=== PATIENT | male | born 1980 | race Caucasian/White ===

== ENCOUNTER 2017-10-10 05:47 | Emergency (ER) | payer MEDICARE, MEDICAID ==
[2017-10-10] MEDS ORDERED: Ibuprofen 800 MG TAB ONE (06:06)
[2017-10-10] MEDS ORDERED: Pseudoephedrine HCl 30 MG TAB PO SCH (06:30)
== END 2017-10-10 06:35 | disposition home or self-care (01) ==
LOC: ERS 05:47
DX: J40 Bronchitis, not specified as acute or chronic (principal); F17.210 Nicotine dependence, cigarettes, uncomplicated; Z71.6 Tobacco abuse counseling
CPT/HCPCS: 99406

== ENCOUNTER 2017-10-19 01:16 | Emergency (ER) | payer MEDICARE, MEDICAID ==
[2017-10-19 02:14] LABS: CKMB 1.7 ng/mL (0-6.6); Troponin I 0.011 ng/mL (< 0.028)
[2017-10-19 02:23] LABS: ALT (SGPT) 17 U/L (8-55); AST (SGOT) 18 U/L (5-34); Albumin 4.2 g/dL (3.5-5.0); Alkaline Phosphatase 82 U/L (40-150); Anion Gap 14 mmol/L (10-20); BUN (Urea Nitrogen) 12 mg/dL (8.9-20.6); Bilirubin, Total 0.3 mg/dL (0.2-1.2); CK (CPK) 194 U/L (30-200); Calc. Creatinine Clearance 0 mL/min (70-130); Calcium 9.7 mg/dL (7.8-10.44); Carbon Dioxide 26 mmol/L (22-29); Chloride 105 mmol/L (98-107); Estimated GFR-MDRD 67; Globulin 3.6 g/dL (2.4-3.5); Glucose 111 mg/dL (70-105); Lipase 223 U/L (8-78); Protein, Total 7.8 g/dL (6.0-8.3); Sodium 141 mmol/L (136-145)
[2017-10-19 02:24] LABS: #Basophils 0.1 thou/uL (0.0-0.2); #Eosinphils 0.2 thou/uL (0.0-0.7); #Lymphocytes 2.3 thou/uL (1.20-3.40); #Monocytes 0.7 thou/uL (0.11-0.59); #Neutrophils 4.2 thou/uL (1.40-6.50); %Basophils 1.6 % (0.0-1.0); %Eosinophils 2.5 % (0.0-10.0); %Lymphocytes 30.8 % (21.0-51.0); %Monocytes 9.9 % (0.0-10.0); %Neutrophils 55.1 % (42.0-75.0); Eosinophils 2 % (0-10); Hemoglobin 17.7 g/dL (14.0-18.0); Lymphocytes 43 % (21-51); MDiff Complete? YES; Mean Corpuscular HGB CONC 31.8 g/dL (32.0-36.0); Mean Corpuscular Hemoglobin 31.4 pg (27.0-31.0); Mean Corpuscular Volume 98.9 fl (80.0-94.0); Mean Platelet Volume 6.9 fL (7.4-10.4); Metamyelocyte 1 % (0-0); Monocytes 5 % (0-10); Neutrophil 49 % (42-75); PLT Morphology Comment Appears Adequate; Platelet Count 328 thou/uL (130-400); Red Blood Cell (RBC) Count 5.64 mill/uL (4.70-6.10); White Blood Cell (WBC) Count 7.5 thou/uL (4.8-10.8)
[2017-10-19] MEDS ORDERED: Ibuprofen 800 MG TAB ONE (03:55)
--- NOTE | 2017-10-19 09:27 | RAD ---
SINGLE VIEW OF THE CHEST: Comparison: 07-25-16 History: Epigastric abdominal pain and chest pain. FINDINGS: Single view of the chest shows a normal sized cardiomediastinal silhouette. Scarring is seen in the r ight lung base. There is no evidence of consolidation, mass, or pleural effusion. IMPRESSION: No evidence of acute cardiopulmonary disease. POS: [facility]
== END 2017-10-19 04:02 | disposition home or self-care (01) ==
LOC: ERS 01:16
DX: M54.5 Low back pain (principal); R07.9 Chest pain, unspecified; F17.210 Nicotine dependence, cigarettes, uncomplicated; G40.909 Epilepsy, unspecified, not intractable, without status epilepticus; Z71.6 Tobacco abuse counseling; Z79.899 Other long term (current) drug therapy
CPT/HCPCS: 71045; 80053; 82553; 83690; 84484; 85025; 93005

== ENCOUNTER 2018-01-21 15:02 | Emergency (ER) | payer MEDICARE, MEDICAID ==
[2018-01-21] MEDS ORDERED: Ketorolac Tromethamine 30 MG/ML VIAL ONE (16:10)
--- NOTE | 2018-01-21 16:33 | RAD ---
THREE VIEWS OF THE RIGHT FOOT: 01/21/18 COMPARISON: None. HISTORY: Right foot pain. FINDINGS: There is no displaced fracture or evidence of dislocation. There is no radiopaque foreign body or sub cutaneous gas seen. IMPRESSION: No acute osseous abnormality. POS: [facility]
== END 2018-01-21 16:30 | disposition home or self-care (01) ==
LOC: ERS 15:02
DX: S90.31XA Contusion of right foot, initial encounter (principal); F41.9 Anxiety disorder, unspecified; F17.210 Nicotine dependence, cigarettes, uncomplicated; G40.909 Epilepsy, unspecified, not intractable, without status epilepticus; W22.8XXA Striking against or struck by other objects, initial encounter
CPT/HCPCS: 96372; 99406; J1885

== ENCOUNTER 2018-02-07 07:25 | Emergency (ER) | payer MEDICARE, MEDICAID ==
[2018-02-07] MEDS ORDERED: Lidocaine 1% w/Epinephrine 1:100K 20 ML VIAL ONE (07:55)
== END 2018-02-07 08:11 | disposition home or self-care (01) ==
LOC: ERS 07:25
DX: S90.562A Insect bite (nonvenomous), left ankle, initial encounter (principal); G40.909 Epilepsy, unspecified, not intractable, without status epilepticus; F41.9 Anxiety disorder, unspecified; F17.210 Nicotine dependence, cigarettes, uncomplicated; W57.XXXA Bitten or stung by nonvenomous insect and other nonvenomous arthropods, initial encounter
CPT/HCPCS: 99281; J2001

== ENCOUNTER 2018-02-18 20:30 | Emergency (ER) | payer MEDICARE, MEDICAID | END 2018-02-18 21:30 | disposition home or self-care (01) | LOC: ERS 20:30 | DX: S90.812A Abrasion, left foot, initial encounter (principal); F41.9 Anxiety disorder, unspecified; F17.210 Nicotine dependence, cigarettes, uncomplicated; Z71.6 Tobacco abuse counseling; X58.XXXA Exposure to other specified factors, initial encounter | CPT/HCPCS: 99406 ==

== ENCOUNTER 2018-09-08 07:52 | Emergency (ER) | payer MEDICARE, MEDICAID ==
[2018-09-08] MEDS ORDERED: Ibuprofen 200 MG TAB ONE (08:24)
--- NOTE | 2018-09-08 09:06 | RAD ---
RIGHT HAND 3 VIEWS: Date: 09/08/18 HISTORY: Right hand pain and swelling. FINDINGS: Persistent flexion at the fourth and fifth metacarpophalangeal joints. Ulnar styloid is intact. No ac [place] fracture, dislocation, or aggressive osseous erosions. IMPRESSION: No evidence of inflammatory arthritis or other acute osseous abnormalities. POS: [facility]
== END 2018-09-08 09:18 | disposition home or self-care (01) ==
LOC: ERS 07:52
DX: M67.441 Ganglion, right hand (principal); F41.9 Anxiety disorder, unspecified; F17.210 Nicotine dependence, cigarettes, uncomplicated; Z79.899 Other long term (current) drug therapy

== ENCOUNTER 2018-11-30 10:53 | Emergency (ER) | payer MEDICARE, MEDICAID ==
[2018-11-30] MEDS ORDERED: Dicyclomine 20 MG TAB ONE (11:34)
[2018-11-30] MEDS ORDERED: Ondansetron ODT 4 MG TAB ONE (11:34)
--- NOTE | 2018-11-30 11:35 | RAD ---
PA AND LATERAL CHEST: Indication: Cough and fever. Comparison: 04-22-19, 10-19-17 FINDINGS: The lungs are hyperinflated but clear. No pneumothorax is evident. Bolus changes of the upper lungs a re stable. Heart size is normal. No acute osseous abnormality is evident. IMPRESSION: 1. Hyperinflation with stable bullous changes of the upper lobes. 2. No pneumothorax or airspace consolidation demonstrated. POS: [facility]
== END 2018-11-30 12:15 ==
LOC: ERS 10:53
DX: J20.9 Acute bronchitis, unspecified (principal); R11.0 Nausea; F17.210 Nicotine dependence, cigarettes, uncomplicated; F41.9 Anxiety disorder, unspecified
CPT/HCPCS: 71046; 87804; Q0162

== ENCOUNTER 2018-12-14 06:44 | Emergency (ER) | payer MEDICAID, MEDICARE | END 2018-12-14 08:04 | disposition home or self-care (01) | LOC: ERS 06:44 | DX: T25.021A Burn of unspecified degree of right foot, initial encounter (principal); X15.8XXA Contact with other hot household appliances, initial encounter | CPT/HCPCS: 99283 ==

== ENCOUNTER 2023-12-07 05:55 | Emergency (ER) | payer MEDICAID, MEDICARE ==
[2023-12-07] MEDS ORDERED: Ondansetron PF 4 MG/2 ML Vial ONE (06:25)
[2023-12-07] MEDS ORDERED: Acetaminophen 500 MG TAB ONE (06:25)
[2023-12-07 06:30] LABS: #Eosinphils 0.2 thou/uL (0.0-0.7); #Monocytes 0.9 thou/uL (0.11-0.59); #Neutrophils 3.5 thou/uL (1.40-6.50); %Basophils 0.5 % (0.0-1.0); %Eosinophils 3.7 % (0.0-10.0); %Lymphocytes 21.8 % (21.0-51.0); %Monocytes 14.3 % (0.0-10.0); %Neutrophils 59.5 % (42.0-75.0); Hematocrit 56.2 % (42.0-52.0); Hemoglobin 19.7 g/dL (14.0-18.0); Mean Corpuscular HGB CONC 35.1 g/dL (32.0-36.0); Mean Corpuscular Hemoglobin 32.7 pg (27.0-31.0); Mean Corpuscular Volume 93.4 fl (78.0-98.0); Mean Platelet Volume 9.4 fL (7.4-10.4); Platelet Count 223 10x3/uL (130-400); RBC Distribution Width 15.4 % (11.5-14.5); Red Blood Cell (RBC) Count 6.02 mill/uL (4.70-6.10); White Blood Cell (WBC) Count 5.9 10x3/uL (4.8-10.8)
[2023-12-07] MEDS ORDERED: cefTRIAXone (ROCEPHIN) 1 GM VIAL ONE (06:37)
[2023-12-07] MEDS ORDERED: Sodium Chloride 0.9% 100 ML ONE (06:38)
[2023-12-07 07:18] LABS: ALT (SGPT) 24 U/L (8-55); AST (SGOT) 26 U/L (5-34); Alkaline Phosphatase 88 U/L (40-110); Anion Gap 16 mmol/L (10-20); BUN (Urea Nitrogen) 7 mg/dL (8.9-20.6); Bilirubin, Total 0.6 mg/dL (0.2-1.2); Calc. Creatinine Clearance 0 mL/min (70-130); Calcium 9.2 mg/dL (7.8-10.44); Carbon Dioxide 24 mmol/L (22-29); Chloride 102 mmol/L (98-107); Estimated GFR 73; Globulin 4.3 g/dL (2.4-3.5); Glucose 106 mg/dL (70-105); Magnesium 2.4 mg/dL (1.6-2.6); Potassium 4.5 mmol/L (3.5-5.1); Protein, Total 8.3 g/dL (6.0-8.3); Sodium 137 mmol/L (136-145)
[2023-12-07 08:42] LABS: Influenza A by NAA Not Detected (NotDetected); Influenza B by NAA Not Detected (NotDetected); SARS-CoV-2 NAA Rapid Test Not Detected (NotDetected)
== END 2023-12-07 08:34 | disposition home or self-care (01) ==
LOC: ERS 05:55
DX: J18.9 Pneumonia, unspecified organism (principal); F17.210 Nicotine dependence, cigarettes, uncomplicated; Z55.6 Problems related to health literacy
CPT/HCPCS: 0240U; 71045; 80053; 83735; 85025; 96365; 96375; J0696; J2405; J3490